=== PATIENT | female | born 1985 | race Hispanic/Latino ===

== ENCOUNTER 2018-09-08 22:06 | Emergency (ER) | payer OTHER ==
[~2018-09-08] VITALS: Ht 160 cm; Wt 773.0 kg
[~2018-09-08 22:06] MED LIST: ALBUTEROL S2.5 MG/.5 IN; ALBUTEROL SUL0.083 % IN; CLARITIN10 MG PO; FOLIC ACID1 MG PO; IBUPROFEN600 MG PO; Levaquin PO; MEDDOSEPAK PO; MOTRIN800 MG PO; PREDNISONE10 MG PO; PREDNISONE20 MG PO; PRENATAL1 TA1 PO; PROAIR HFA IN; ROBITUSSIN AC10 ML PO; TAB-A-VITE W/1 COMBO PO; TESSALON PER100 MG PO; VENTOLIN HF1 IN; VENTOLIN HFA IN; ZPAK PO; ZYRTEC10 MG PO
[2018-09-08 22:29] LABS: HEMATOCRIT 36.8 % (37.0-47.0); HEMOGLOBIN 11.6 g/dl (12.0-16.0); IMMATURE GRANULOCYTES 0.4 % (0.0-5.0); MEAN CORPUSCULAR HGB 27.7 pG CALC (26.0-32.0); MEAN CORPUSCULAR HGB CONC 31.5 g/L CALC (32.0-36.0); NEUT# 5.2 thou/uL (2.00-7.15); RED BLOOD COUNT 4.19 mill/uL (4.20-5.60); RED CELL DISTRI WIDTH 15.2 % (11.5-15.5)
[2018-09-08 22:31] LABS: MEAN CELL VOLUME 87.8 fL CALC (80.0-100.0)
[2018-09-08 22:41] LABS: ALKALINE PHOSPHATASE 67 u/l (38-126); ANION GAP 16 (6-22 (CALC)); BILIRUBIN, TOTAL 0.3 mg/dL (0.0-1.4); BUN 13 mg/dL (7-17); BUN/CREATININE RATIO 19 (12-20 (CALC)); CARBON DIOXIDE 22 mmol/l (22-30); CHLORIDE 105 mmol/l (95-108); CREATININE 0.7 mg/dL (0.5-1.0); GFR > 60 ML/MIN (>=60 (CALC)); GFR FOR AFR.AMER. > 60 ML/MIN (>=60 (CALC)); POTASSIUM 4.2 mmol/l (3.5-5.1); SGOT/AST 19 u/l (14-36); SODIUM 139 mmol/l (137-146); TOTAL PROTEIN 7.6 g/dL (6.3-8.2)
[2018-09-08] MEDS ORDERED: ALBUTEROL SUL0.083 % IN (22:42)
[2018-09-08] MEDS ORDERED: FLOVENT HF110 MCG/AC IN (22:44)
[2018-09-08 22:58] LABS: ALBUMIN 4.7 g/dL (3.2-5.0)
--- NOTE | 2018-09-08 23:32 | NUR ---
BREATHING TREATMENT GIVEN. BREATHING TECH. FOR GOOD DEPOSITION TO THE LUNGS.
[2018-09-08] MEDS ORDERED: MEDDOSEPAK PO (23:46)
[2018-09-08] MEDS ORDERED: CEPHALEXIN500 M1 PO (23:46)
[2018-09-08] MEDS ORDERED: ROBITUSSIN AC10 ML PO (23:46)
[2018-09-09 00:27] VITALS: BP 136/72
== END 2018-09-09 00:43 | disposition home or self-care (01) | DRG 203 ==
LOC: ED 22:06
PROVIDERS: Emergency Medicine
DX: J45.901 Unspecified asthma with (acute) exacerbation (principal); J06.9 Acute upper respiratory infection, unspecified; F17.200 Nicotine dependence, unspecified, uncomplicated

== ENCOUNTER 2020-06-27 15:49 | Emergency (ER) | payer OTHER ==
[~2020-06-27] VITALS: Ht 160 cm; Wt 84.5 kg
[~2020-06-27 15:49] MED LIST changes: +CEPHALEXIN500 M1 PO; +FLOVENT HF110 MCG/AC IN
[2020-06-27] MEDS ORDERED: BREO ELLIPTA 101 INH (17:20)
[2020-06-27] MEDS ORDERED: ALBUTEROL SUL0.083 % IN (17:30)
[2020-06-27] MEDS ORDERED: VENTOLIN HFA IN (17:30)
[2020-06-27] MEDS ORDERED: IPRATROPIU0.5 MG/3 M IN (17:30)
[2020-06-27] MEDS ORDERED: MEDDOSEPAK PO (17:30)
[2020-06-27] MEDS ORDERED: BREO ELLIPTA 101 INH IN (17:30)
[2020-06-27 17:34] VITALS: BP 135/83
== END 2020-06-27 17:39 | disposition home or self-care (01) | DRG 203 ==
LOC: ED 15:49
DX: J45.901 Unspecified asthma with (acute) exacerbation (principal); T48.6X6A Underdosing of antiasthmatics, initial encounter; F17.210 Nicotine dependence, cigarettes, uncomplicated; Z91.128 Patient's intentional underdosing of medication regimen for other reason

== ENCOUNTER 2020-09-26 | Emergency (ER) | payer SELFPAY ==
[~2020-09-26] MED LIST changes: +BREO ELLIPTA 101 INH; +BREO ELLIPTA 101 INH IN; +IPRATROPIU0.5 MG/3 M IN
[2020-09-26 18:56] LABS: HEMATOCRIT 37.4 % (37.0-47.0); HEMOGLOBIN 11.6 g/dl (12.0-16.0); IMMATURE GRANULOCYTES 0.4 % (0.0-5.0); MEAN CELL VOLUME 85.8 fL CALC (80.0-100.0); MEAN CORPUSCULAR HGB 26.6 pG CALC (26.0-32.0); NEUT# 7.95 thou/uL (2.00-7.15); RED BLOOD COUNT 4.36 mill/uL (4.20-5.60); RED CELL DISTRI WIDTH 15.2 % (11.5-15.5)
[2020-09-26 19:00] LABS: HCG SERUM/URINE (NEG/POS) NEGATIVE (NEGATIVE)
[2020-09-26 19:02] LABS: ALBUMIN 4.7 g/dL (3.2-5.0); ALKALINE PHOSPHATASE 65 u/l (38-126); ANION GAP 13 (6-22 (CALC)); BILIRUBIN, TOTAL 0.6 mg/dL (0.0-1.4); BUN 8 mg/dL (7-17); BUN/CREATININE RATIO 12 (12-20 (CALC)); CARBON DIOXIDE 23 mmol/l (22-30); CHLORIDE 104 mmol/l (95-108); CREATININE 0.7 mg/dL (0.5-1.0); GFR > 60 ML/MIN (>=60 (CALC)); GFR FOR AFR.AMER. > 60 ML/MIN (>=60 (CALC)); POTASSIUM 4.2 mmol/l (3.5-5.1); SGOT/AST 34 u/l (14-36); SODIUM 136 mmol/l (137-146); TOTAL PROTEIN 8.1 g/dL (6.3-8.2)
[2020-09-26] MEDS ORDERED: MEDDOSEPAK PO (19:58)
== END 2020-09-26 20:11 | disposition home or self-care (01) | DRG 203 ==
DX: J45.901 Unspecified asthma with (acute) exacerbation (principal); Z20.822 Contact with and (suspected) exposure to COVID-19

== ENCOUNTER 2020-11-18 23:19 | Observation (INO) | payer SELFPAY ==
[~2020-11-18] VITALS: Ht 154.9 cm; Wt 90.0 kg
--- NOTE | 2020-11-18 23:25 | NUR ---
PT TO ROOM 16. TRIAGED AT BEDSIDE. AT BEDSIDE FOR EVAL.
--- NOTE | 2020-11-18 23:30 | NUR ---
PATIENT SITTING UP TRIPOD POSITION. TIGHT INSPIRATORY WHEEZING NOTED. C/O "LUNGS HURT " WHEN SHE BREATHES. NEB TREATMENT IN PROGRESS. DISCUSSED POSIBLE MAG SULFATE WITH PHYSICIAN. GIVE MEDS AND TREATMENTS ORDERED AND CONTINUE TO MONITOR
--- NOTE | 2020-11-19 | NUR ---
PATIENT LAYING BACK ON STRETCHER WITH HOB ELEVATED 45%. NO DISTRESS NOTED. EXPIRATORY WHEEZING NOTED. WILL CONTINUE TO MONITOR
--- NOTE | 2020-11-19 02:00 | NUR ---
PATIENT SITTING UP IN BED FOR EASE OF BREATHING. REPORTS RIGHT LUNG HURTS WHEN BREATHING. DIMINISHED BREATH SOUNDS AND TIGHT EXPIRATORY WHEEZE WITH COUGH. PHYSICIAN NOTIFIED AND EVALUATED PATIENT AT BEDSIDE. PLAN FOR ADMISSION. PATIENT AGREES WITH PLAN.
[2020-11-19 02:12] LABS: HEMATOCRIT 36.2 % (37.0-47.0); HEMOGLOBIN 11.1 g/dl (12.0-16.0); IMMATURE GRANULOCYTES 0.3 % (0.0-5.0); MEAN CELL VOLUME 88.1 fL CALC (80.0-100.0); MEAN CORPUSCULAR HGB CONC 30.7 g/dL CAL (32.0-36.0); NEUT# 6.82 thou/uL (2.00-7.15); RED BLOOD COUNT 4.11 mill/uL (4.20-5.60); RED CELL DISTRI WIDTH 15.6 % (11.5-15.5)
[2020-11-19 02:23] LABS: ALBUMIN 4.2 g/dL (3.2-5.0); ALKALINE PHOSPHATASE 63 u/l (38-126); ANION GAP 12 (6-22 (CALC)); BUN 9 mg/dL (7-17); BUN/CREATININE RATIO 13 (12-20 (CALC)); CARBON DIOXIDE 26 mmol/l (22-30); CHLORIDE 105 mmol/l (95-108); CREATININE 0.7 mg/dL (0.5-1.0); GFR > 60 ML/MIN (>=60 (CALC)); GFR FOR AFR.AMER. > 60 ML/MIN (>=60 (CALC)); POTASSIUM 3.9 mmol/l (3.5-5.1); SGOT/AST 30 u/l (14-36); SODIUM 138 mmol/l (137-146); TOTAL PROTEIN 7.6 g/dL (6.3-8.2)
[2020-11-19 02:25] LABS: BILIRUBIN, TOTAL 0.1 mg/dL (0.0-1.4)
--- NOTE | 2020-11-19 02:40 | NUR ---
MUCH IMPROVED. RESTING ON STRECHER WITH HOB ELEVATED.
--- NOTE | 2020-11-19 04:57 | NUR ---
REPORT GIVEN TO TENZIN JACOBS ON MEDICAL FLOOR
[2020-11-19 05:10] VITALS: BP 119/73
--- NOTE | 2020-11-19 05:13 | NUR ---
PT RECEIVED FROM ED TO ROOM 262. ARRIVES VIA W/C ACCOMPANIED BY SETH DAVE. PT AMBULATORY TO BED. GAIT STEADY. PT DENIES PAIN AT THIS TIME. ORIENTED TO UNIT, ROOM, CALL PORTER, LIGHTS, TV. ICE WATER PROVIDED. CALL PORTER WITHIN REACH. AGREES TO CALL PRN.
[2020-11-19 06:27] LABS: URINE BILIRUBIN - DIPSTICK NEGATIVE (NEGATIVE); URINE BLOOD DIPSTICK TRACE-LYSED (NEGATIVE); URINE CLARITY CLEAR; URINE COLOR YELLOW; URINE GLUCOSE - DIPSTICK NEGATIVE (NEGATIVE); URINE KETONE NEGATIVE (NEGATIVE); URINE LEUK ESTERASE NEGATIVE (Negative); URINE NITRITE - DIPSTICK NEGATIVE (Negative); URINE PH 5.5 (4.5-8.0); URINE PROTEIN - DIPSTICK NEGATIVE (NEG-TRACE); URINE UROBILINOGEN - DIPSTICK 0.2 E.U./dL (0.2)
[2020-11-19 07:05] VITALS: BP 103/63
--- NOTE | 2020-11-19 07:17 | NUR ---
SHIFT CHANGE REPORT, PT AWAKE ALERT AND ORIENTED X 4, DENIES ANY DISCOMFORT AT THIS TIME, CALL PORTER IN REACH AND BED LOCKED IN LOWEST POSITION.
[2020-11-19] MEDS ORDERED: SINGULAIR10 MG PO (10:09)
[2020-11-19] MEDS ORDERED: [UNRECOGNIZED DRUG - OTHER] IN ×2 (10:09→12:45)
[2020-11-19] MEDS ORDERED: MOMETASONE IN ×2 (10:09→12:45)
--- NOTE | 2020-11-19 13:29 | NUR ---
Discharge instructions given. Patient verbalizes understanding of same. Discharged in stable condition via Wheelchair to Home with spouse. All belongings sent with pt.
[2020-11-19] MEDS ORDERED: IPRATROPIU0.5 MG/3 M IN (13:31)
--- NOTE | 2020-11-19 13:38 | NUR ---
PT RECEIVED D/C INSTRUCTIONS, STATED RIDE WAS DOWNSTAIRS WAITING FOR HER BUT ON TRANSPORTING HER THERE THERE WAS NO ONE THERE, PT SAID SHE WOULD SIT ON BENCH HER CONSULTING DATABASE ADMINISTRATOR ONLY LIVED 8 MINS AWAY AND WOULD BE THERE, SHE WAS ADVISED THAT WAS NOT OUR POLICY TO LEAVE PT UNATTENDED TO BE PICKED UP BUT SHE WANTED TO DO THAT SO NURSE HONORED HER RIGHTS/REQUEST.
== END 2020-11-19 13:19 | disposition home or self-care (01) | DRG 203 ==
LOC: ED 23:19 → ED-I 11-19 04:01 → ED 11-19 04:59 → MS2 11-19 05:02
PROVIDERS: Emergency Medicine; ADMIT Internal Medicine; ATTEND Internal Medicine
DX: J45.901 Unspecified asthma with (acute) exacerbation (principal); F17.200 Nicotine dependence, unspecified, uncomplicated; Z20.822 Contact with and (suspected) exposure to COVID-19
CPT/HCPCS: G0378